=== PATIENT | male | born 1950 | race Caucasian/White ===

== ENCOUNTER 2022-12-23 13:05 | Emergency (ER) | payer MEDICARE, OTHER ==
[2022-12-23] MEDS ORDERED: Ketorolac 30 MG/ML SDV IVPUSH ONE (13:59)
== END 2022-12-23 16:10 | disposition home or self-care (01) ==
LOC: FB.ED 13:05
DX: S43.102A Unspecified dislocation of left acromioclavicular joint, initial encounter (principal); V80.010A Animal-rider injured by fall from or being thrown from horse in noncollision accident, initial encounter; Y93.52 Activity, horseback riding
CPT/HCPCS: 73030; 96374; 99283; J1885